=== PATIENT | female | born 1935 | race Caucasian/White ===

== ENCOUNTER 2016-11-30 06:54 | Emergency (ER) | payer MEDICARE, OTHER ==
[2016-11-30 05:55] LABS: BASOPHILS 0.5 %; BASOPHILS ABSOLUTE 0.03 10/3/uL (0.0-0.16); EOSINOPHILS 3.9 %; EOSINOPHILS ABSOLUTE 0.22 10/3/uL (0.0-0.53); ER CBC TAT 0 Hrs 12 Mins; IMMATURE GRANULOCYTES 0.2 %; IMMATURE GRANULOCYTES ABSOLUTE 0.01 10/3/uL (0.0-0.11); LYMPHOCYTES 34.4 %; LYMPHOCYTES ABSOLUTE 1.96 10/3/uL (0.67-4.30); MEAN CORPUS HGB CONC 32.6 g/dL (32.0-36.0); MEAN CORPUSCULAR HEMOGLOB 27.6 pg (26.0-34.0); MEAN PLATELET VOLUME 9.7 fL (9.2-13.0); MONOCYTES 9.3 %; MONOCYTES ABSOLUTE 0.53 10/3/uL (0.21-1.20); NEUTROPHILS 51.7 %; NEUTROPHILS ABSOLUTE 2.94 10/3/uL (2.02-8.40); PLATELET COUNT 216 10/3/uL (150-400); RBC DISTRIBUTION WIDTH 16.4 % (12.0-16.0); WHITE BLOOD CELLS 5.7 10/3/uL (4.5-10.5)
[2016-11-30 05:57] LABS: HEMATOCRIT 41.4 % (36.0-48.0); HEMOGLOBIN 13.5 g/dL (12.0-16.0); MANUAL DIFF NO %; MEAN CORPUSCULAR VOLUME 84.5 fL (80-100)
[~2016-11-30 06:54] MED LIST: AMB5 PO; AMBIEN CR12.5 MG PO; AMITIZA8 MCG PO; ANASPAZ0.125 MG SL; ATV.5 PO; BENTYL10 PO; FLONASE NAS; KLOR-CON M2020 MEQ PO; LEVOTHYROXIN100 MCG PO; LEVOXYL50 MCG PO; MACROBID PO; MONODOX100 MG PO; MUCINEX DM PO; NORCO1 TA1 PO; NORCO1 TAB PO; PEP20 PO; PROAIR HFA INH; PROTONIX PO; PROVHFA INH; REFRESH OPH; REG5; SYN075 PO; TESS PO; TYLENOL PM PO; VIVELLE-DOT; X25 PO; X5 PO; XANAX1 MG PO; ZOFRAN ODT4 MG PO
== END 2016-11-30 08:10 | disposition home or self-care (01) ==
LOC: ER 06:54
PROVIDERS: Specialist
DX: R04.0 Epistaxis (principal); Z85.3 Personal history of malignant neoplasm of breast; Z90.13 Acquired absence of bilateral breasts and nipples; Z88.8 Allergy status to other drugs, medicaments and biological substances; Z88.2 Allergy status to sulfonamides; Z79.899 Other long term (current) drug therapy
CPT/HCPCS: 85025; 99283; A9270-GY

== ENCOUNTER 2016-12-01 04:30 | Emergency (ER) | payer MEDICARE, OTHER | END 2016-12-01 04:55 | disposition home or self-care (01) | LOC: ER 04:30 | DX: R04.0 Epistaxis (principal); Z85.3 Personal history of malignant neoplasm of breast; Z88.2 Allergy status to sulfonamides; Z88.8 Allergy status to other drugs, medicaments and biological substances; Z79.899 Other long term (current) drug therapy | CPT/HCPCS: 99283 ==